=== PATIENT | male | born 1990 | race Caucasian/White ===

== ENCOUNTER 2017-03-28 21:03 | Emergency (ER) | payer BC ==
[2017-03-28 21:11] VITALS: RESP 18; TEMP 98.8
--- NOTE | 2017-03-28 21:41 | ED ---
Psych HPI - General Chief Complaint: Psychiatric Symptoms Stated Complaint: mental health Time Seen by Provider: 03/28/17 21:17 Source: patient, RN notes reviewed Mode of arrival: ambulatory Limitations: no limitations - History of Present Illness Initial Comments: This a 26-year-old male presents emergency Department chief complaint of psychiatric evaluation. Patient is brought to emergency department for evaluation because he made threats over the weekend. Patient was starting to kill himself with a gun. Patient states that he was intoxicated and does not exactly remember this. Patient states that he was sober for over a year and states that he relapsed. Patient denies any drug abuse at this time. Patient states he does not drink any alcohol today. Denies any physical complaints. He denies being suicidal or homicidal. - Related Data Home Medications Medication Instructions Recorded Confirmed No Known Home Medications [No 03/28/17 03/28/17 Known Home Medications] Allergies Allergy/AdvReac Type Severity Reaction Status Date / Time No Known Allergies Allergy Verified 03/28/17 21:42 Review of Systems ROS Statement: Those systems with pertinent positive or pertinent negative responses have been documented in the HPI. ROS Other: All systems not noted in ROS Statement are negative. Past Medical History Past Medical History: No Reported History History of Any Multi-Drug Resistant Organisms: None Reported Past Surgical History: No Surgical Hx Reported Past Psychological History: ADD/ADHD Smoking Status: Current every day smoker Past Alcohol Use History: Occasional Past Drug Use History: Marijuana General Exam Limitations: no limitations General appearance: alert, in no apparent distress Head exam: Present: atraumatic, normocephalic, normal inspection Eye exam: Present: normal appearance, PERRL, EOMI. Absent: scleral icterus, conjunctival injection, periorbital swelling ENT exam: Present: normal exam, mucous membranes moist Neck exam: Present: normal inspection, full ROM. Absent: tenderness, meningismus, lymphadenopathy Respiratory exam: Present: normal lung sounds bilaterally. Absent: respiratory distress, wheezes, rales, rhonchi, stridor Cardiovascular Exam: Present: regular rate, normal rhythm, normal heart sounds. Absent: systolic murmur, diastolic murmur, rubs, gallop, clicks GI/Abdominal exam: Present: soft, normal bowel sounds. Absent: distended, tenderness, guarding, rebound, rigid Neurological exam: Present: alert, oriented X3, CN II-XII intact Psychiatric exam: Present: normal affect, normal mood Skin exam: Present: warm, dry, intact, normal color. Absent: rash Course Vital Signs 03/28/17 21:05 Temperature 98.8 F Pulse Rate 106 H Respiratory 18 Rate Blood Pressure 165/89 O2 Sat by Pulse 97 Oximetry Medical Decision Making - Medical Decision Making 26-year-old male presented for psychiatric evaluation. Patient denies being suicidal or homicidal. Patient was evaluated by psychiatric services and case discussed with psychiatrist. Patient will be discharged per the recommendation of the psychiatrist - Lab Data Lab Results 03/28/17 Range/Units 22:00 Urine Opiates Screen Not Detected (NotDetected) Ur Oxycodone Screen Not Detected (NotDetected) Urine Methadone Screen Not Detected (NotDetected) Ur Propoxyphene Screen Not Detected (NotDetected) Ur Barbiturates Screen Not Detected (NotDetected) U Tricyclic Antidepress Not Detected (NotDetected) Ur Phencyclidine Scrn Not Detected (NotDetected) Ur Amphetamines Screen Not Detected (NotDetected) U Methamphetamines Scrn Not Detected (NotDetected) U Benzodiazepines Scrn Not Detected (NotDetected) Urine Cocaine Screen Not Detected (NotDetected) U Marijuana (THC) Screen Detected H (NotDetected) Disposition Clinical Impression: Alcohol abuse, Depression Disposition: HOME SELF-CARE Condition: Stable Instructions: Abuse of Alcohol (ED) Additional Instructions: Please return to the Emergency Department if symptoms worsen or any other concerns. Referrals: None,Stated [Primary Care Provider] - 1-2 days Time of Disposition: 23:37
[2017-03-28] MEDS ORDERED: NICOTINE 21MG/24HR PATCH TRANSDERM STA (22:21)
[2017-03-28 23:53] VITALS: BP 139/82; PULSE 63
== END 2017-03-28 23:53 | disposition home or self-care (01) ==
LOC: EC 21:03
DX: F32.9 Major depressive disorder, single episode, unspecified (principal); F10.10 Alcohol abuse, uncomplicated; F17.200 Nicotine dependence, unspecified, uncomplicated
CPT/HCPCS: 82075; 80306; 99284; S4990